=== PATIENT | female | born 1995 | race Caucasian/White ===

== ENCOUNTER 2018-02-19 01:59 | Emergency (ER) | END 2018-02-19 05:45 | disposition home or self-care (01) ==

== ENCOUNTER 2019-02-09 13:10 | Emergency (ER) | payer BC ==
[~2019-02-09] VITALS: Ht 162.6 cm; Wt 60.7 kg
[~2019-02-09 13:10] MED LIST: IBUP-1542 PO; PANT40TA4 PO
[2019-02-09 13:13] VITALS: Ht 162.6 cm; Wt 60.7 kg
[2019-02-09] MEDS ORDERED: PRED20TA PO (15:17)
[2019-02-09] MEDS ORDERED: HYDR-842 PO (15:17)
[2019-02-09] MEDS ORDERED: predniSONE 20 MG TAB PO ONE (15:30)
[2019-02-09 15:43] VITALS: BP 133/74; PULSE 99; RESP 20
--- NOTE | 2019-02-09 18:06 | ERD ---
ER Documentation Chief Complaint Chief Complaint gen rash w/ itching since Thursday; pt not in distress HPI 23-year-old woman complains of pruritic red rash times 3 days over the upper and lower extremities bilaterally. She states a similar episode happened about a year ago and she was diagnosed with urticaria. She denies contact with any new foods soaps, detergents, lotions, or medications. Patient denies chest pain or shortness of breath, no abdominal pain, no vomiting, no difficulty swallowing or speaking. ROS All systems reviewed and are negative except as per history of present illness. Medications Home Meds Active Scripts Hydroxyzine Hcl* (Atarax*) 25 Mg Tab, 25 MG PO TID, #15 TAB Prov:GWENDOLYN MARTE MD 02/09/19 Prednisone* (Prednisone*) 20 Mg Tab, 40 MG PO DAILY for 4 Days, TAB Prov:GWENDOLYN MARTE MD 02/09/19 Ibuprofen* (Motrin*) 600 Mg Tab, 600 MG PO Q6H PRN for PAIN AND OR ELEVATED TEMP, #30 TAB Prov:HARI SILVERIO MD 02/19/18 Pantoprazole (Protonix) 40 Mg Tabec, 40 MG PO DAILY for 30 Days, TAB Prov:EMMANUEL CEDENO 08/30/15 Allergies Allergies: Coded Allergies: No Known Allergies (Unverified Allergy, Unknown, 02/09/19) PMhx/Soc Medical and Surgical Hx: pt denies Surgical Hx History of Surgery: No Anesthesia Reaction: No Hx Neurological Disorder: No Hx Respiratory Disorders: No Hx Cardiac Disorders: No Hx Psychiatric Problems: No Hx Miscellaneous Medical Probl: Yes (Psoriasis) Hx Alcohol Use: No Hx Substance Use: No Hx Tobacco Use: No FmHx Family History: No diabetes Physical Exam Vitals Vital Signs Date Temp Pulse Resp B/P (MAP) Pulse Ox O2 O2 Flow FiO2 Time Delivery Rate 02/09/19 98.1 99 20 133/74 100 Room Air 15:43 (93) 02/09/19 98.7 113 20 141/82 100 13:13 (101) Physical Exam Const: No acute distress, afebrile Head: Atraumatic Eyes: Normal Conjunctiva ENT: Normal External Ears, Nose and Mouth. Neck: Full range of motion. No meningismus. Resp: Clear to auscultation bilaterally Cardio: Regular rate and rhythm, no murmurs Abd: Soft, non tender, non distended. Normal bowel sounds Skin: No petechiae, bilateral upper and lower extremity maculopapular rash, no vesicles or ulcers noted, no target lesions noted, rash spares palms and soles Back: No midline or flank tenderness Ext: No cyanosis, or edema Neur: Awake and alert x3, no focal deficits or facial asymmetry Psych: Normal Mood and Affect Results 24 hrs Current Medications Medications Dose Sig/Danny Start Time Status Last (Trade) Ordered Route PRN Stop Time Admin Dose Reason Admin Prednisone 60 mg ONCE ONCE 02/09/19 DC 02/09/19 (Prednisone) PO 15:30 15:22 02/09/19 15:31 Procedures/MDM I administered prednisone 60 mg p.o. x1. Patient feels much better at this time, and vital signs are normal, symptoms have improved. I did give strict instructions to return to the ED if symptoms continue or worsen, patient will otherwise follow-up with primary care physician. Patient understood instructions and agreed to plan. Disclaimer: Inadvertent spelling and grammatical errors are likely due to EHR/dictation software use and do not reflect on the overall quality of patient care. Also, please note that the electronic time recorded on this note does not necessarily reflect the actual time of the patient encounter. Departure Diagnosis: Primary Impression: Acute urticaria Condition: Good Patient Instructions: GWENDOLYN Weaver MD Feb 09, 2019 18:06
== END 2019-02-09 15:42 | disposition home or self-care (01) ==
LOC: FTE 13:10
DX: L50.9 Urticaria, unspecified (principal)
CPT/HCPCS: J7512; Z7502; 99283